=== PATIENT | male | born 1980 | race Two or more races ===

== ENCOUNTER 2022-04-14 17:02 | Outpatient (REF) | payer MEDICAID, SELFPAY ==
--- NOTE | ~2022-04-14 | XR_ITS ---
EXAMINATION: XR ANKLE, RIGHT CLINICAL INFORMATION: Acute right ankle pain. COMPARISON: None TECHNIQUE: AP, lateral, and mortise views of the right ankle. FINDINGS: The malleoli are intact and the ankle mortise is symmetric. The talar dome shows no osteochondral lesion. The subtalar joint appears normal. The retrocalcaneal recess is preserved. The base of the fifth metatarsal is intact. There are bulky posterior and small plantar calcaneal spurs. Lateral view shows some fine linear mineralization adjacent to the distal dorsal talus and the proximal dorsal tarsal navicular. Chronicity is uncertain. These could represent fine cortical avulsions from ligament pull. Recommend correlation with patient's symptoms and clinical exam. XR/XR ankle RT min 3V IMPRESSION: -Fine linear mineralization adjacent to distal dorsal talus and proximal dorsal tarsal navicular. This could represent fine cortical avulsions from ligamentous pull. Recommend correlation with patient's symptoms and clinical exam. -Otherwise, no fracture or dislocation. -Posterior and plantar calcaneal spurs.
== END 2022-04-14 17:03 | disposition home or self-care (01) ==
LOC: HO.XRAY 17:02
PROVIDERS: Absent Provider Internal Medicine; PCP Internal Medicine; Visit Provider Registered Nurse
DX: M25.571 Pain in right ankle and joints of right foot (principal)
CPT/HCPCS: 73610